=== PATIENT | female | born 1960 | race Caucasian/White ===

== ENCOUNTER → 2021-06-26 07:41 | Outpatient (CLI) | payer OTHER, SELFPAY ==
--- NOTE | 2021-06-26 | DI.ECHO.S_ITS ---
[place] +---------+ [facility] +---------+ : : [address] : [address] : : : : [id number] : : : : Phone: [phone]+ Echocardiogram Report + + :Name: JULIET HAN Study Date: 06/26/2021 Height: 59 in : :[facility] ReadingLocation: Weight: 143 lb : : Gender: Female BSA: 1.6 m2 : :: 1960 Age: 61 yrs BP: 119/81 mmHg: :Reason For Study: Mitral Valve- Prolapse : :Ordering Physician: ALEYDA, : :NAUN Camarena Performed By: Rivera Ponce : :Referring: NAUN MAYNARD : + + Interpretation Summary The left ventricle is normal in size and wall thickness. The ejection fraction is estimated to be 50-55%. The right ventricle is normal in size and function. There is no evidence of obvious mitral valve prolapse. There is mild to moderate mitral regurgitation. The mitral regurgitant jet is eccentrically directed. The IVC is of normal diameter and collapses greater than 50% with a sniff. This suggests a low right atrial pressure of 3 mm Hg. Procedure: A two-dimensional transthoracic echocardiogram with color flow and Doppler was performed. The study quality was technically adequate. There is no prior echocardiogram noted for this patient. The patient was in normal sinus rhythm during the exam. Left Ventricle: The left ventricle is normal in size and wall thickness. There is no thrombus. The ejection fraction is estimated to be 50-55%. There are no focal wall motion abnormalities. Diastolic parameters suggest a relaxation abnormality of the left ventricle, consistent with probable normal filling pressures. Right Ventricle: The right ventricle is normal in size and function. Atria: Both atria are normal in size. The interatrial septum grossly appears intact with no obvious evidence for an atrial septal defect. Mitral Valve: The mitral valve leaflets appear to open well. The mitral valve leaflets are slightly calcified. There is a flat closure plane of the the mitral valve leaflets. There is no evidence of mitral valve prolapse. There is mild to moderate mitral regurgitation. The mitral regurgitant jet is eccentrically directed. Aortic Valve: The aortic valve is normal in structure and function. The aortic valve is trileaflet. There is no aortic valve stenosis. There is trace aortic regurgitation. Tricuspid Valve: The tricuspid valve is normal in structure and function. There is trace tricuspid regurgitation. Pulmonary artery pressures cannot be estimated because of the lack of a measurable TR jet velocity. Pulmonic Valve: The pulmonic valve is normal in structure and function. There is a trace or physiologic amount of pulmonic regurgitation. Great Vessels: The aortic root is normal size. The dimensions of the ascending aorta are normal. The IVC is of normal diameter and collapses greater than 50% with a sniff. This suggests a low right atrial pressure of 3 mm Hg. Pericardium/ Pleura There is no pericardial effusion. There is no pleural effusion. MMode/2D Measurements & Calculations LVIDd: 4.1 cm LVOT diam: 2.0 cm LVIDs: 2.8 cm Ao root diam: 2.9 cm FS: 31.3 % asc Aorta Diam: 2.5 cm IVSd: 0.67 cm LVPWd: 0.80 cm LV rasheed. diameter/BSA (cm/m^2): 2.6 LV sys. diameter/BSA (cm/m^2): 1.8 LA A2 area: 12.0 cm2 RA long axis: 4.2 cm LA A4 area: 12.9 cm2 RA area: 11.4 cm2 LA length (vol): 4.7 cm RA vol: 26.1 ml LA vol: 28.1 ml RA : 16.3 ml/m2 LA vol index: 17.5 ml/m2 TAPSE: 2.0 cm Doppler Measurements & Calculations Ao V2 max: 110.0 cm/sec LVOT [place]: 93.3 cm/sec Ao V2 mean: 72.7 cm/sec LV V1 max P.5 mmHg Ao max P.8 mmHg LV V1 VTI: 16.6 cm Ao mean P.4 mmHg KECIA(I,D): 2.9 cm2 Ao V2 VTI: 18.0 cm KECIA(V,D): 2.6 cm2 sev ratio: 0.92 KECIA indexed to BSA (cm^2/m^2): 1.8 MV E max hawk: 56.0 cm/sec SV(LVOT): 51.5 ml MV A max hawk: 71.8 cm/sec MV E/A: 0.78 Med Peak E' Hawk: 6.7 cm/sec E/E' med: 8.3 Lat Peak E' Hawk: 6.0 cm/sec E/E' lat: 9.3 E/e' average: 8.8 MV dec time: 0.17 sec Reading Physician:09:07 AM
== END ==
PROVIDERS: PCP Nurse Practitioner; Referring Provider Family Medicine; Visit Provider Family Medicine
DX: I34.0 Nonrheumatic mitral (valve) insufficiency (principal)
CPT/HCPCS: 93306